=== PATIENT | female | born 1990 | race Caucasian/White ===

== ENCOUNTER 2016-12-11 06:40 | Emergency (ER) | payer OTHER ==
[~2016-12-11] VITALS: Ht 162.6 cm; Wt 84.6 kg
[2016-12-11 06:43] VITALS: TEMP 37.1; Ht 162.6 cm; Wt 84.6 kg
[2016-12-11] MEDS ORDERED: BCPILLS PO (06:52)
[2016-12-11] MEDS ORDERED: KETOROLAC TROMETHAMINE 30 MG/ML VIAL IV STA (07:15)
[2016-12-11 07:30] LABS: BASO % 0.4 %; BASO ABS # 0.03 K/uL (0-0.2); COMPLETE YES; IG% 0.1 %; LYMPH % 47.6 %; LYMPH ABS # 3.85 K/uL (1.2-3.4); MEAN CELL VOLUME 83.3 fL (80-100); MEAN CORPUSCULAR HEMOGLOBIN 26.6 pg (25-34); MEAN CORPUSCULAR HGB CONC 31.9 g/dl (32-36); MEAN PLATELET VOLUME 10.6 fL (7.4-10.4); MONO % 5.7 %; NEUT % 44.2 %; PLATELET COUNT 288 K/uL (130-400); RED BLOOD COUNT 5.16 M/uL (4.2-5.4); WHITE BLOOD COUNT 8.09 K/uL (4.8-10.8)
[2016-12-11 07:42] LABS: BUN/CREATININE RATIO 12.1 (10-20); CALCIUM 9.1 mg/dl (8.5-10.1); CREATININE 0.84 mg/dl (0.60-1.20); POTASSIUM 3.8 mmol/L (3.5-5.1)
--- NOTE | 2016-12-11 08:06 | EMERGENCY ROOM VISIT NOTE ---
ED Visit Note First contact with patient: 07:03 CHIEF COMPLAINT: Neck pain HISTORY OF PRESENT ILLNESS: This 20 sexual female patient presents to the emergency department by private vehicle complaining of pain in the neck and upper back pain that started last night around 10 PM patient states that she was sitting most of the day studying and watching TV, when she developed a sudden sharp in her right upper shoulder that felt like a pinching and radiated up into her neck. Pain is worse with movement of the neck and better with rest. She describes the pain as constant, sharp and shooting, 6/10. She states the pain feels like a pulled muscle. She did take 2 Advil this morning around 4 AM with minimal improvement in the pain. Patient does note that she gave blood yesterday afternoon, she is wondering if this could have something to do with her symptoms. Patient states she spoke with her father he told her she should go to the ER to get checked for a blood clot in her lungs. She denies any history of blood clots, she denies any chest pain, shortness of breath, dizziness or syncope, leg pain or swelling, recent long travel or injury. She takes oral control. She denies any fevers/chills, headache, vision changes, numbness/tingling/weakness of her arms or legs. REVIEW OF SYSTEMS: A 10 system review of systems was completed with positives and pertinent negatives listed in the HPI. ALLERGIES: Reviewed in chart MEDICATIONS: Reviewed in chart PMH: No significant past medical or surgical history. SOCIAL HISTORY: Patient lives at home. She denies tobacco, alcohol, recreational drug use. PHYSICAL EXAM: VITALS: Vitals are noted on the nurse's note and reviewed by myself. Vital signs stable. GENERAL: Pleasant and cooperative, in no acute distress, non- diaphoretic, well-developed well-nourished. SKIN: Capillary reflex less than 2 seconds. HEENT: Normocephalic. PERRLA. EOMI. Nares patent. Mucous membranes moist. Neck is supple without nuchal rigidity. Cervical spine is not tender to palpation. The patient has moderate tenderness of the paraspinal muscles along the right neck and upper back. There is moderate spasming of the muscle as the point of maximum tenderness.. There is no lymphadenopathy. MUSCULOSKELETAL: The patient has full range of motion of the bilateral arms. Strength 5/5 of the bilateral upper extremities. The patient has tenderness with range of motion of the neck, particularly turning head side to side. She does not have nuchal rigidity or any meningismus. NEURO: Patient was alert and oriented to person place and time. Normal sensation to light and sharp touch. No focal neurologic deficits. EMERGENCY DEPARTMENT COURSE: I examined the patient. Symptoms and exam consistent for an acute muscle spasm/torticollis. Patient is very concerned about the possibility of a blood clot, a d-dimer was performed for reassurance, this is negative. Other basic labs are also negative and she is not . Patient was given IV Toradol with good improvement in her pain. She was also offered PO Valium, however she prefers not to have anything sedating as she wishes to drive home and does not have a ride. She is provided with a prescription for Valium and instructed on achiness at home for further management of her muscle spasm and pain. She is also instructed to follow up with her PCP if her symptoms do not improve, and given strict return precautions if her symptoms worsen, she verbalized understanding. Patient was discharged home in stable condition and ambulatory. Patient was discussed with Dr. Moreno, agrees with my assessment and plan. Current/Historical Medications Scheduled Control Pills ( Control Pills), 1 TAB PO DAILY Diazepam (Valium), 1-2 TABS PO TID Allergies Coded Allergies: No Known Allergies (Unverified , 12/11/16) Vital Signs Date Time Temp Pulse Resp B/P (MAP) Pulse Ox O2 Delivery O2 Flow Rate FiO2 12/11/16 10:06 86 20 120/73 100 Room Air 12/11/16 08:20 72 20 115/68 100 Room Air 12/11/16 06:43 37.1 87 18 132/90 100 Room Air Laboratory Results 12/11/16 07:10 Red Blood Count 5.16, Mean Corpuscular Volume 83.3, Mean Corpuscular Hemoglobin 26.6, Mean Corpuscular Hemoglobin Concent 31.9, Mean Platelet Volume 10.6, Neutrophils (%) (Auto) 44.2, Lymphocytes (%) (Auto) 47.6, Monocytes (%) (Auto) 5.7, Eosinophils (%) (Auto) 2.0, Basophils (%) (Auto) 0.4, Neutrophils # (Auto) 3.58, Lymphocytes # (Auto) 3.85, Monocytes # (Auto) 0.46, Eosinophils # (Auto) 0.16, Basophils # (Auto) 0.03 12/11/16 07:10 Test 12/11/16 07:10 12/11/16 07:15 12/11/16 08:30 White Blood Count 8.09 K/uL (4.8-10.8) Red Blood Count 5.16 M/uL (4.2-5.4) Hemoglobin 13.7 g/dL (12.0-16.0) Hematocrit 43.0 % (37-47) Mean Corpuscular Volume 83.3 fL (80-100) Mean Corpuscular Hemoglobin 26.6 pg (25-34) Mean Corpuscular Hemoglobin Concent 31.9 g/dl (32-36) Platelet Count 288 K/uL (130-400) Mean Platelet Volume 10.6 fL (7.4-10.4) Neutrophils (%) (Auto) 44.2 % Lymphocytes (%) (Auto) 47.6 % Monocytes (%) (Auto) 5.7 % Eosinophils (%) (Auto) 2.0 % Basophils (%) (Auto) 0.4 % Neutrophils # (Auto) 3.58 K/uL (1.4-6.5) Lymphocytes # (Auto) 3.85 K/uL (1.2-3.4) Monocytes # (Auto) 0.46 K/uL (0.11-0.59) Eosinophils # (Auto) 0.16 K/uL (0-0.5) Basophils # (Auto) 0.03 K/uL (0-0.2) RDW Standard Deviation 49.0 fL (36.4-46.3) RDW Coefficient of Variation 16.3 % (11.5-14.5) Immature Granulocyte % (Auto) 0.1 % Immature Granulocyte # (Auto) 0.01 K/uL (0.00-0.02) Anion Gap 8.0 mmol/L (3-11) Est Creatinine Clear Calc Drug Dose 106.8 ml/min Estimated GFR () 111.2 Estimated GFR (Non- 95.9 BUN/Creatinine Ratio 12.1 (10-20) Calcium Level 9.1 mg/dl (8.5-10.1) Bedside Urine Test NEG (NEG) D-Dimer 360 ug/L FEU (0-500) Medications Administered Medications (Trade) Dose Ordered Sig/Yudith Route Start Time Stop Time Status Last Admin Dose Admin Ketorolac Tromethamine (Toradol Inj) 15 mg NOW STAT IV 12/11/16 07:15 12/11/16 07:21 DC 12/11/16 07:28 15 MG Departure Information Impression Primary Impression: Neck muscle spasm Dispostion Home / Self-Care Condition GOOD Prescriptions Diazepam (Valium) 5 Mg Tab 1-2 TABS PO TID for Muscle Spasms, #10 TAB Prov: SilBindu ToscanoDivina, IT CONSULTANT 12/11/16 Referrals No Doctor, Assigned (PCP) Patient Instructions ED Spasm Back No Trauma, My [facility], Torticollis Additional Instructions You were seen in the emergency department today for your muscle spasms in your upper back and neck. Ibuprofen 800 mg every 8 hours for the next 2-3 days for pain and inflammation of the muscle. Valium 1-2 tablets every 8 hours as needed for muscle spasms. This medication may make you drowsy, use caution when taking it. Do not drive or drink alcohol while you're taking this medication. Alternate between ice and heat to the sore area to help reduce inflammation and improved circulation. After applying heat, do gentle stretches and massage to the area to help loosen the muscles. Drink plenty of fluids to stay well hydrated. Follow-up with your PCP in 2-3 days for recheck of your pain. Please return to the emergency department for any worsening symptoms, including severe worsening pain, severe headache, numbness or weakness in the arms or legs , persistent vomiting, fevers or chills, or any other concerns. School Instructions Return To School: 1 day
[2016-12-11] MEDS ORDERED: DIAZ-165 PO (09:35)
[2016-12-11 10:06] VITALS: BP 120/73; PULSE 86; O2SAT 100
== END 2016-12-11 10:20 | disposition home or self-care (01) ==
LOC: C.EDB 06:42
DX: M62.838 Other muscle spasm (principal); M54.2 Cervicalgia